=== PATIENT | male | born 1945 | race Caucasian/White ===

== ENCOUNTER 2017-04-23 18:26 | Emergency (ER) | payer BC, MEDICARE ==
[~2017-04-23] VITALS: Ht 177.8 cm; Wt 93.0 kg
[~2017-04-23 18:26] MED LIST: ALLO300T2 PO; AMLO5 PO; APIX5TAB PO; ATEN50TA PO; BRIM0.155 EACH EYE; COQ-100C2 PO; GABA300C5 PO; LUMI0.01 EACH EYE; LYSI1TAB4 PO; METF500T PO; MULT-65 PO; NIAC500T18 PO; ROSU20 PO; SYMB160A INH; VITACAP7 PO; [UNRECOGNIZED DRUG - REMARK] TOPICAL
[2017-04-23 18:31] VITALS: BP 134/64; PULSE 71; RESP 16; TEMP 97.7; O2SAT 96
[2017-04-23 19:45] VITALS: BP 136/66; PULSE 77; RESP 18; O2SAT 97
[2017-04-23] MEDS ORDERED: SODIUM CHLOR 0.9% 1000 ML INJ 1,000 ML IV SCH (19:47)
[2017-04-23] MEDS ORDERED: ONDANSETRON HCL 4 MG/2 ML VIAL IVP ONE (20:00)
[2017-04-23] MEDS ORDERED: DIPHTH/TETANUS/ACEL PERTUSSIS (BOOSTER) 0.5 ML VIAL/PFS IM ONE (20:00)
[2017-04-23] MEDS ORDERED: MORPHINE SULFATE 4 MG/ML INJ IV ONE (20:00)
[2017-04-23] MEDS ORDERED: SODIUM CHLORIDE 0.9% FLUSH 10 ML FLUSH IVF PRN (20:00)
[2017-04-23] MEDS ORDERED: TETANUS/DIPHTHERIA TOXOID ADULT 0.5 ML VIAL IM ONE (21:00)
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
[2017-04-23 21:55] VITALS: BP 134/60; PULSE 72; RESP 18; O2SAT 97
[2017-04-23 22:34] LABS: POTASSIUM 3.3 MEQ/L (3.5-5.1)
[2017-04-23 22:37] LABS: BICARBONATE 22.2 MEQ/L (21.0-32.0)
[2017-04-23 22:48] LABS: GLUCOSE,URINE NEG (NEG); KETONE, URINE NEG (NEG); NITRITE,URINE NEG (NEG)
[2017-04-23 22:56] LABS: BLOOD, URINE MOD (NEG); URINE COLOR YELLOW (YELLW/STRAW)
[2017-04-23 22:57] LABS: COMMENT (UR) CULT NOT INDICATED; CULTURE IF INDICATED CULT NOT INDICATED; SQUAMOUS EPITHELIAL CELL URINE 0-5 /hpf (0-5)
[2017-04-23] MEDS ORDERED: IOHEXOL 350 MG/ML 10 ML VIAL (for RAD DIAG) IV ONE (23:05)
[2017-04-23] MEDS ORDERED: CYCL1TAB29 PO (23:28)
[2017-04-23] MEDS ORDERED: NORC5TAB PO (23:28)
--- NOTE | 2017-04-23 23:31 | RADHPO ---
EXAM DATE/TIME: 04/23/2017 22:58 [facility] COMPARISON: No previous studies available for comparison. INDICATIONS : Status post fall. Hit head. On Eliquis. RADIATION DOSE: 65.84 CTDIvol (mGy) MEDICAL HISTORY : Hypertension. Cardiovascular disease Diabetes mellitus type 2.diverticulitis SURGICAL HISTORY : Appendectomy. CABGBowel Resection ENCOUNTER: Initial ACUITY: 1 day PAIN SCALE: 10/10 LOCATION: cranial TECHNIQUE: Multiple contiguous axial images were obtained of the head. Using automated exposure control and adj ustment of the mA and/or kV according to patient size, radiation dose was kept as low as reasonably a chievable to obtain optimal diagnostic quality images. FINDINGS: CEREBRUM: The ventricles are normal for age. No evidence of midline shift, mass lesion, hemorrhage or acute in farction. No extra-axial fluid collections are seen. There is diffuse and symmetric low-attenuation in the periventricular white matter, presumably chronic. POSTERIOR FOSSA: The cerebellum and brainstem are intact. The 4th ventricle is midline. The cerebellopontine angle i s unremarkable. EXTRACRANIAL: The visualized portion of the orbits is intact. SKULL: The calvaria is intact. No evidence of skull fracture. CONCLUSION: No bleed or other acute intracranial abnormality. Chronic white matter changes. Tong Chua MD on April 23, 2017 at 23:29 Board Certified Radiologist. This report was verified electronically.
--- NOTE | 2017-04-23 23:40 | RADHPO ---
EXAM DATE/TIME: 04/23/2017 23:05 [facility] COMPARISON: No previous studies available for comparison. INDICATIONS : Status post fall, hit left side and back. IV CONTRAST: 68 cc Omnipaque 350 (iohexol) IV ORAL CONTRAST: No oral contrast ingested. RADIATION DOSE: 20.27 CTDIvol (mGy) MEDICAL HISTORY : Cardiovascular disease. Hypertension. Diverticulitis.Diabetes SURGICAL HISTORY : CABG Appendectomy.Bowel Resection ENCOUNTER: Initial ACUITY: 1 day PAIN SCALE: 10/10 LOCATION: Left abdomen TECHNIQUE: Volumetric scanning of the abdomen and pelvis was performed. Using automated exposure control and ad justment of the mA and/or kV according to patient size, radiation dose was kept as low as reasonably achievable to obtain optimal diagnostic quality images. FINDINGS: There is an acute subcapsular hematoma of the left kidney. It measures approximately 24 mm in maximal thickness. There is normal parenchymal enhancement demonstrated. No perceptible active bleeding seen . Minimal non-organized edema/hemorrhage in the left retroperitoneal space. The right kidney is mason l. Liver is slightly fatty infiltrated but otherwise normal. The spleen, pancreas and adrenal glands are all normal. CT appearance of the gastrointestinal tract within normal limits. No intraperitoneal hematoma. Dense atherosclerosis seen of the abdominal aorta and iliac arteries. No aneurysm. No fracture seen of the visualized osseous structures. Incidentally seen simple appearing lipoma with in the proximal rectus femoris muscle belly. There is calcification and mild enlargement of the prostate. Atelectasis seen of the visualized lung bases, left more so than right. No hemothorax demonstrated. CONCLUSION: 1. Acute subcapsular hematoma of the left kidney. No active bleeding seen. Minimal nonorganized hemor rhage in the left retroperitoneal space. 2. Atelectasis of the visualized lung bases. 3. No fracture seen of the visualized osseous structures. 4. Dense atherosclerosis of the abdominal aorta and iliac arteries. No aneurysm. Tong Chua MD on April 23, 2017 at 23:32 Board Certified Radiologist. This report was verified electronically.
[2017-04-23] MEDS ORDERED: PERC5TAB12 PO (23:48)
--- NOTE | 2017-04-23 23:57 | RADHPO ---
EXAM DATE/TIME: 04/23/2017 22:58 [facility] COMPARISON: No previous studies available for comparison. INDICATIONS : Status post fall. RADIATION DOSE: 26.63 CTDIvol (mGy) MEDICAL HISTORY : Cardiovascular disease. Hypertension. Diabetes mellitus type 2. SURGICAL HISTORY : CABG Appendectomy.Bowel Resection ENCOUNTER: Initial ACUITY: 1 day PAIN SCALE: 10/10 LOCATION: neck TECHNIQUE: Volumetric scanning of the cervical spine was performed. Multiplanar reconstructions in the sagittal, coronal and oblique axial planes were performed. Using automated exposure control and adjustment o f the mA and/or kV according to patient size, radiation dose was kept as low as reasonably achievable to obtain optimal diagnostic quality images. FINDINGS: Cervical spine alignment is normal. No cortical break or trabecular disruption. Vertebral bodies have normal height. There is moderate osteoarthritis anteriorly at C1/C2. Mild disc space narrowing with mild uncovertebr al and facet osteoarthritis seen at C5/C6 and C6/C7. There is mild foraminal stenosis on the left at C6/C7. Juxtavertebral soft tissues are within normal limits. Visualized lung apices are clear. Incidentally seen azygous fissure. CONCLUSION: 1. No fracture or subluxation of the cervical spine. 2. Degenerative changes as above. Mild foraminal stenosis on the left at C6/C7. Tong Chua MD on April 23, 2017 at 23:54 Board Certified Radiologist. This report was verified electronically.
[2017-04-24] LABS: AUTOMATED NEUTROPHIL # 8.2 TH/MM3 (1.8-7.7); BASOPHIL % 0.3 % (0.0-2.0); EOSINOPHIL # 0.1 TH/MM3 (0-0.4); HEMATOCRIT 41.9 % (39.0-51.0); LYMPH % 16.9 % (9.0-44.0); MEAN CELL VOLUME 97.8 FL (80.0-100.0); MEAN CORPUSCULAR HEMOGLOBIN 32.5 PG (27.0-34.0); MEAN CORPUSCULAR HGB CONC 33.2 % (32.0-36.0); MONO % 10.7 % (0.0-8.0); NEUT % 71.1 % (16.0-70.0); PLATELET COUNT 177 TH/MM3 (150-450); RED BLOOD COUNT 4.29 MIL/MM3 (4.50-5.90); RED CELL DISTRIBUTION WIDTH 14.9 % (11.6-17.2); WHITE BLOOD COUNT 11.6 TH/MM3 (4.0-11.0)
[2017-04-24 00:05] VITALS: BP 131/64; PULSE 70; RESP 18; O2SAT 97
[2017-04-24 00:05] LABS: HEMO FLAGS DIFF FINAL
[2017-04-24 00:11] LABS: APTT (PATIENT) 30.3 SEC (24.3-30.1); INTERNATIONAL NORMALIZED RATIO 1.1 RATIO; PROTHROMBIN TIME - PATIENT 11.8 SEC (9.8-11.6)
[2017-04-24 01:15] VITALS: BP 130/6; PULSE 68; RESP 18; O2SAT 97
[2017-05-14] MEDS ORDERED: NIAC500T67 PO (11:26)
[2017-05-14] MEDS ORDERED: COQ-100C5 PO (11:26)
== END 2017-04-24 01:19 | disposition home or self-care (01) ==
LOC: PHED 18:26
DX: S30.1XXA Contusion of abdominal wall, initial encounter (principal); S16.1XXA Strain of muscle, fascia and tendon at neck level, initial encounter; S37.012A Minor contusion of left kidney, initial encounter; I70.0 Atherosclerosis of aorta; M48.02 Spinal stenosis, cervical region; I10 Essential (primary) hypertension; V98.8XXA Other specified transport accidents, initial encounter
CPT/HCPCS: 70450; 72125; 74177; 80048; 81001; 85025; 85610; 85730; 90471; 90714; 96361; 96374; 99285; J2405; J7030; Q9967

== ENCOUNTER → 2017-08-18 | Outpatient (CLI) | payer BC ==
[~2017-08-18] MED LIST changes: -AMLO5 PO; -COQ-100C2 PO; +COQ-100C5 PO; +CYCL1TAB29 PO; +DORZ2SOL EACH EYE; +METH50TA2 PO; -NIAC500T18 PO; +NIAC500T67 PO; +PRED10 PO
[2017-08-18 13:33] LABS: AUTOMATED NEUTROPHIL # 6.3 TH/MM3 (1.8-7.7); BASOPHIL % 0.2 % (0.0-2.0); EOSINOPHIL % 0.2 % (0.0-4.0); HEMATOCRIT 39.3 % (39.0-51.0); HEMO FLAGS DIFF FINAL; LYMPH % 16.3 % (9.0-44.0); LYMPHOCYTE # 1.3 TH/MM3 (1.0-4.8); MEAN CORPUSCULAR HEMOGLOBIN 31.3 PG (27.0-34.0); MEAN CORPUSCULAR HGB CONC 34.1 % (32.0-36.0); MONO % 4.3 % (0.0-8.0); PLATELET COUNT 184 TH/MM3 (150-450); RED BLOOD COUNT 4.27 MIL/MM3 (4.50-5.90); WHITE BLOOD COUNT 7.9 TH/MM3 (4.0-11.0)
== END ==
LOC: PHPRE 13:03
PROVIDERS: ATTEND Pain Medicine Interventional Pain Medicine
DX: Z01.812 Encounter for preprocedural laboratory examination (principal); Z01.810 Encounter for preprocedural cardiovascular examination; B02.29 Other postherpetic nervous system involvement
CPT/HCPCS: 36415; 84132; 85025

== ENCOUNTER → 2017-08-24 | Day surgery (SDC) | payer BC ==
[~2017-08-24] VITALS: Ht 175.3 cm; Wt 86.5 kg
[~2017-08-24] MED LIST changes: +BUPIVACAINE/EPINEPHRINE 0.5% PF 30 ML VIAL INFIL ONE; +CHLORHEXIDINE GLUCONATE 2 % 1 PACK (2 CLOTHS) TOPICAL PRN; -CYCL1TAB29 PO; +FAMOTIDINE 20 MG/2 ML VIAL ONE; +INSULIN HUMAN REGULAR 1,000 UNITS/10 ML VIAL SQ PRN; +LACTATED RINGER'S 1000 ML IV PRN; +METOPROLOL TARTRATE 25 MG TAB PO PRN; +POVIDONE IODINE 5% (ANTISEPSIS KIT) 4 APPLICATIONS EACH NARE PRN; +PROPOFOL 200 MG/20 ML AMP IV ONE; +SODIUM CHLORID 0.9% 500 ML IV PRN; +SODIUM CHLORIDE 0.9% 20 ML VIAL ONE; +ceFAZolin 1,000 MG/NS 100 ML IV SCH
[2017-08-24] MEDS: BUPIVACAINE/EPINEPHRINE 0.25% PF 30 ML VIAL ONE ×2 (07:22→12:00)
[2017-08-24 11:02] LABS: APTT (PATIENT) 24.8 SEC (24.3-30.1); PROTHROMBIN TIME - PATIENT 11.1 SEC (9.8-11.6)
[2017-08-24 14:19] VITALS: BP 150/49; PULSE 70; RESP 16; TEMP 97.2; O2SAT 99
--- NOTE | 2017-08-24 14:55 | MP ---
cc: LEWIS JONES M.D. DATE OF SURGERY: 08/24/2017 DATE OF : 1945 PROCEDURE Implantation of Medtronic Octrode for spinal cord stimulation. PREPROCEDURE DIAGNOSIS Postherpetic neuralgia, left thoracic nerve roots. POSTPROCEDURE DIAGNOSIS Postherpetic neuralgia, left thoracic nerve roots. PROCEDURE NOTE An IV was started in the holding area. The patient was given IV antibiotics. The consent forms were signed. The patient was marked. The patient was taken to the operating room and placed in a prone position. All pressure points were checked and padded. He was sedated by Anesthesia. His back was prepped with ChloraPrep and draped with sterile drapes. Fluoroscopy was used to visualize the L1-2 interspace. The skin was infiltrated with 1% Xylocaine using a 27-gauge needle. Then a modified Tuohy needle from the VirnetX kit was advanced into the epidural space at T12-L1 slightly to the left of the midline. A Medtronic Octrode was then threaded in a cephalad direction until the cephalad portion of the electrode was at T7 and the caudal portion was at T8. The patient was awakened and stimulation took place at multiple electrode combinations. The patient claimed that he was feeling excellent stimulation in the area of his pain in his left flank and he stated that the stimulation felt "good." The patient was then re-sedated. An incision was made around the needle. The subcutaneous pocket was created and the needle was removed. The stylet was removed from the stimulating electrode. An anchoring device was used to anchor the stimulating electrode to the interspinous ligament using two 2-0 Ethibond sutures. Then a distal extension wire was connected to the stimulating electrode and secured by tightening an Michelet screw. Impedance was checked at the bedside and found to be appropriate in all the electrodes. The connection was covered with a Silastic cover secured at both ends with 2-0 Ethibond suture. The stimulating electrode and distal extension wire were coiled in the lumbar midline in the subcutaneous pocket. A tunneling device was used to pass the distal extension wire from the lumbar incision to exit on the patient's right flank. The incision was closed with 3-0 Monocryl in the subcuticular tissue and 3-0 nylon on the skin. The incision was covered with sterile adhesive dressings and the patient was taken to the recovery room with stable vital signs, neurologically intact. W. MD NORIS Gates/RADHIKA /1:07 PM /2:47 PM
--- NOTE | 2017-08-25 07:22 | RADRPT ---
EXAM DATE/TIME: 08/24/2017 12:55 [facility] COMPARISON: No previous studies available for comparison. INDICATIONS : Post insertion of trial stimulator. Hemostats at to the left of T-9. MEDICAL HISTORY : Hypercholesterolemia. Myocardial infarction. Diabetes mellitus type II. A-fib. CAD. Hypertension. COPD. Bilateral bacteria pneumonia. Diverticulitis.Renal stones. Arthritis. Malaria. Gout. SURGICAL HISTORY : Appendectomy. Hemorrhoidectomy. CABG. Cardiac cath w/ stent placement. Bowel resection. Right ACL rep air. ENCOUNTER: Initial ACUITY: 1 day PAIN SCORE: Non-responsive. LOCATION: Thoracic spine. FINDINGS: Single AP view of the thoracic spine demonstrates overlying sternotomy wires. Spinal stimulator lead overlies the thoracic spine. Hemostatic clip overlies the left aspect of one of the thoracic vertebra l bodies. The image is labeled "hemostats to the left of T9." Assuming this labeling is correct, the spinal stimulator lead terminates at the T6-T7 level. Based on the image provided there are not enoug h anatomic landmarks to independently verify the level. CONCLUSION: Single spot fluoroscopic image of the thoracic spine, as above. Tong Dooley MD on August 25, 2017 at 7:19 Board Certified Radiologist. This report was verified electronically.
== END | disposition home or self-care (01) ==
LOC: PHSDC 09:21
PROVIDERS: ATTEND Pain Medicine Interventional Pain Medicine
DX: B02.29 Other postherpetic nervous system involvement (principal); I48.91 Unspecified atrial fibrillation; I10 Essential (primary) hypertension; J44.9 Chronic obstructive pulmonary disease, unspecified; I25.2 Old myocardial infarction; Z87.442 Personal history of urinary calculi; E11.9 Type 2 diabetes mellitus without complications
CPT/HCPCS: 01936; 63650; 72020; 85610; 85730; C1778; J0690; J7120; 77003

== ENCOUNTER → 2017-08-31 | Day surgery (SDC) | payer BC ==
[~2017-08-31] VITALS: Ht 175.3 cm; Wt 86.4 kg
[~2017-08-31] MED LIST changes: +ACETYLCHOLINE CHL OPHT SOLN 1:100 2 ML VIAL ONE; +BUPIVACAINE/EPINEPHRINE 0.5% 50 ML VIAL ONE; -BUPIVACAINE/EPINEPHRINE 0.5% PF 30 ML VIAL INFIL ONE; +EPINEPHrine HCL (1:1000) 1 MG/ML VIAL ONE; -FAMOTIDINE 20 MG/2 ML VIAL ONE; -METH50TA2 PO; +PILOCARPINE HCL 2% OPHT SOLN 15 ML BTL ONE; +TOBRAMYCIN/DEXAMETHASONE OPTH OINT 3.5 GM TUBE ONE; +VISCOAT OPHT IRRIG SOLN 0.75 ML SYRINGE ONE
[2017-08-31 12:55] VITALS: TEMP 97.8
[2017-08-31 14:00] VITALS: BP 119/70; PULSE 50; RESP 16; O2SAT 98
--- NOTE | 2017-08-31 14:20 | MP ---
cc: LEWIS JONES M.D. DATE OF SURGERY: 08/31/2017 1945 PROCEDURE Reposition spinal cord stimulating electrodes (Takkles octrode). PREPROCEDURE DIAGNOSIS Postherpetic neuralgia left thoracic ribcage. POSTPROCEDURE DIAGNOSIS Postherpetic neuralgia left thoracic ribcage. PROCEDURE NOTE IV was started in the holding area. The patient was given IV antibiotics. Consent forms were signed and the surgical site was marked. The patient was taken to the operating room, placed in the prone position on the operating room table. Pressure points were checked and padded. The patient was sedated and monitored by Anesthesia. His back was prepped with Chloraprep and draped with sterile drapes. Then the small lumbar incision was infiltrated with 1% lidocaine containing epinephrine and the sutures were cut and the incision was opened. Then the Silastic anchoring device which was anchoring the stimulating lead was cut. Fluoroscopy was used to check the position of the electrodes and when we entered the operating room the cephalad portion of the electrodes was at the caudal portion of T7. The original position of the electrodes was the cephalad electrodes were at the middle portion of T6. So a stylet was placed back into the lead and the lead was successfully advanced to the original position. Then a new Silastic anchor was placed and Circumferentially tied with three 2-0 Ethibond sutures to the underlying ligaments. Following the anchoring process, the lead had not moved and this was confirmed via fluoroscopy. Then a distal extension wire was connected to the stimulating lead by tightening an Michelet screw. Impedance was checked at the bedside and found to be appropriate in all of the electrodes. Then the incision was irrigated with small amount of Betadine solution. The stimulating lead was coiled in the subcutaneous pocket. A tunneling device was used to tunnel the distal extension wire to exit on the patient's right flank. Then the incision was closed with 3-0 Monocryl in the subcuticular tissue and 3-0 Nylon on the skin. The incision was covered with sterile adhesive dressings and the patient was taken to the recovery room with stable vital signs, neurologically intact. W. MD NORIS Gates/ISMAEL /12:46 PM /2:10 PM
== END | disposition home or self-care (01) ==
LOC: PHSDC 10:00
PROVIDERS: ATTEND Pain Medicine Interventional Pain Medicine
DX: B02.29 Other postherpetic nervous system involvement (principal)
CPT/HCPCS: 01936; 63650; 76000; C1778; J0690; J7120; J0171

== ENCOUNTER → 2017-09-16 | Day surgery (SDC) | payer BC ==
[~2017-09-16] VITALS: Ht 175.3 cm; Wt 86.5 kg
[~2017-09-16] MED LIST changes: -ACETYLCHOLINE CHL OPHT SOLN 1:100 2 ML VIAL ONE; -EPINEPHrine HCL (1:1000) 1 MG/ML VIAL ONE; -LYSI1TAB4 PO; +LYSI500T12 PO; -PILOCARPINE HCL 2% OPHT SOLN 15 ML BTL ONE; -SODIUM CHLORIDE 0.9% 20 ML VIAL ONE; -TOBRAMYCIN/DEXAMETHASONE OPTH OINT 3.5 GM TUBE ONE; -VISCOAT OPHT IRRIG SOLN 0.75 ML SYRINGE ONE
[2017-09-16 15:30] VITALS: BP 130/65; PULSE 56; RESP 16; TEMP 98.2; O2SAT 99
--- NOTE | 2017-09-16 15:48 | MP ---
cc: LEWIS JONES M.D. DATE OF SURGERY: 09/16/2017 DATE OF : 1945 PROCEDURE Removal of spinal cord stimulating electrode (Medtronic's Octrode). PREPROCEDURE DIAGNOSIS Postherpetic neuralgia with intractable pain. POSTPROCEDURE DIAGNOSIS Postherpetic neuralgia with intractable pain. PROCEDURE NOTE An IV was started in the holding area. The surgical consent forms were signed. The surgical site was marked. The patient was given IV antibiotics, taken to the operating room and placed in the prone position. All pressure points were checked and padded. His lumbar area was prepped with ChloraPrep and draped with sterile drapes. The patient was sedated and monitored by Anesthesia. The lumbar incision was infiltrated with 0.5% Marcaine containing epinephrine. Then an incision was made and blunt and sharp dissection was used to dissect down to the stimulating electrode which was anchored to the interspinous ligament with two 2-0 Ethibond sutures. These sutures were cut and the stimulating electrode was removed intact. The incision was irrigated with Betadine. Hemostasis was obtained with a Bovie. Closure took place with 3-0 Monocryl in the subcuticular tissue and 3-0 nylon on the skin. The incision was covered with sterile adhesive dressings and the patient was taken to the recovery room with stable vital signs. W. MD NORIS Gates/RADHIKA /2:23 PM /3:44 PM
== END | disposition home or self-care (01) ==
LOC: PHSDC 10:45
PROVIDERS: ATTEND Pain Medicine Interventional Pain Medicine
DX: B02.29 Other postherpetic nervous system involvement (principal); E11.9 Type 2 diabetes mellitus without complications; I10 Essential (primary) hypertension; I25.10 Atherosclerotic heart disease of native coronary artery without angina pectoris; I73.9 Peripheral vascular disease, unspecified; M10.9 Gout, unspecified; Z95.5 Presence of coronary angioplasty implant and graft
CPT/HCPCS: 01936; 63661; J0690; J3010; J7120

== ENCOUNTER → 2017-11-27 | Outpatient (CLI) | payer BC ==
[~2017-11-27] MED LIST changes: -BUPIVACAINE/EPINEPHRINE 0.5% 50 ML VIAL ONE; -CHLORHEXIDINE GLUCONATE 2 % 1 PACK (2 CLOTHS) TOPICAL PRN; -INSULIN HUMAN REGULAR 1,000 UNITS/10 ML VIAL SQ PRN; -LACTATED RINGER'S 1000 ML IV PRN; -METOPROLOL TARTRATE 25 MG TAB PO PRN; -POVIDONE IODINE 5% (ANTISEPSIS KIT) 4 APPLICATIONS EACH NARE PRN; -PROPOFOL 200 MG/20 ML AMP IV ONE; -SODIUM CHLORID 0.9% 500 ML IV PRN; -ceFAZolin 1,000 MG/NS 100 ML IV SCH
--- NOTE | 2017-12-02 10:08 | RSPPFT ---
DATE OF PROCEDURE: 11/27/17 COMMENTS: VOLUMES DYNAMIC: FVC and FEV1 normal. STATIC: FRC, RV and TLC normal. FLOWS: FEV1% normal; FEF 25-75 mildly reduced. DIFFUSION: Mildly reduced. FLOW VOLUME LOOP: Terminal airflow obstruction. IMPRESSION: Mild terminal airflow obstruction with no improvement post-bronchodilator. No significant hyperinflation noted. Diffusion capacity is mildly reduced.
== END ==
LOC: HRSP 12:13
PROVIDERS: ATTEND Internal Medicine
DX: J44.9 Chronic obstructive pulmonary disease, unspecified (principal)
CPT/HCPCS: 94060; 94618; 94726; 94729